=== PATIENT | female | born 1980 | race Caucasian/White ===

== ENCOUNTER → 2019-03-17 07:34 | Outpatient (CLI) | payer OTHER, SELFPAY ==
--- NOTE | ~2019-03-17 | MM_ITS ---
EXAMINATION: MM screening william BI w danelle HISTORY: Screening mammogram TECHNIQUE: Craniocaudal and mediolateral oblique 3-D tomosynthesis images were obtained and synthetic 2-D images were generated. CAD analysis was submitted and interpreted. COMPARISON: No prior mammogram is available for comparison at this institution. BREAST PARENCHYMAL COMPOSITION: There are scattered areas of fibroglandular density. FINDINGS: There is no evidence of suspicious mass, calcification, or architectural distortion to sugg est malignancy in either breast. There has been no suspicious interval change. IMPRESSION: 1. No mammographic evidence of malignancy. 2. Recommend routine screening mammography in one year. BI-RADS Category 1: Negative Reviewed, dictated and finalized at location B. STRIAL ORGANIZATIONAL PSYCHOLOGIST
== END ==
PROVIDERS: PCP Nurse Practitioner; Visit Provider Nurse Practitioner
DX: Z12.31 Encounter for screening mammogram for malignant neoplasm of breast (principal)
CPT/HCPCS: 77063; 77067

== ENCOUNTER → 2019-04-14 16:00 | Outpatient (CLI) | payer OTHER, SELFPAY ==
--- NOTE | ~2019-04-14 | XR_ITS ---
EXAMINATION: XR knee RT min 4V DATE: 04/14/2019 16:15 INDICATION: Right knee pain. TECHNIQUE: 4 views of right knee were obtained. COMPARISON: None. FINDINGS: Bone alignment is normal. No fracture. There is mild osteoarthritis of lateral and patellof emoral compartments characterized by tiny marginal osteophytes. No knee joint effusion. IMPRESSION: 1. Mild right knee osteoarthritis. Reviewed, dictated and finalized at location A. ATRONICS TECHNOLOGIST
== END ==
PROVIDERS: PCP Family Medicine; Visit Provider Family Medicine
DX: M17.11 Unilateral primary osteoarthritis, right knee (principal)
CPT/HCPCS: 73564

== ENCOUNTER 2019-11-16 11:11 | Outpatient (CLI) | payer OTHER, SELFPAY ==
--- NOTE | 2019-12-10 08:53 | WPDHOMESLEEP ---
Sleep Study - Home Date of Study: 11/16/19 Ordering Provider: Noel Medina MD Interpreting Physician: Nallely Burden MD Home Sleep Study Type: Apnea Link Air Height: 1.7 m Weight: 81.647 kg Body Mass Index: 28.1 [place]: 12 Reason for Sleep Study Non refreshing sleep, constantly tired Sleep History Pippa Sue is a 39 year-old female who is constantly tired. She rarely feels refreshed on waking, even after a full night of sleep. She constantly feels as if she could take a nap, although she does not have an opportunity to do so. She yawns constantly. This has been going on for several years. She wakes up during the night. She rarely snores loudly enough that others complain about it but she does frequently snore. She frequently awakens at night with heartburn and belching or coughing. she occasionally has trouble sick with a cold. She frequently wakes up gasping for breath at night frequently has breathing problems at night observed by others. She frequently sweats excessively at night. She occasionally notices her heart pounding irregularly at night. She frequently falls asleep during the day, never involuntarily or while driving. She does not have loss of muscle tone was strong emotion. 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 [facility] Past Medical History Medical History Abnormal fasting glucose Mixed hyperlipidemia Right knee pain Family History Family History Grandparent Family history of cardiovascular disease Mother Family history of coronary artery disease Social History Social History Smoking status: Never smoker Alcohol intake: current Medications Home Medications Medication Instructions Recorded Confirmed Type fluticasone propionate 50 1 spray NASAL BID 01/07/19 08/24/19 History mcg/actuation nasal spray,suspension levothyroxine 112 mcg tablet 112 mcg PO DAILY 01/07/19 08/24/19 History phentermine 37.5 mg capsule 37.5 mg PO DAILY #30 cap 02/19/19 08/24/19 Rx alprazolam 0.25 mg tablet 0.25 mg PO BID PRN #60 tablet 08/24/19 08/24/19 Rx venlafaxine 150 mg 150 mg PO DAILY #30 cap 09/28/19 Rx capsule,extended release 24 hr Sleep Procedure This test was performed using 4 channel monitoring including respiratory effort channel snoring channel heart rate channel and oxygen saturation channel. This study was scored using [facility] guidelines. The evaluation time was 8 hours 54 minutes which is adequate for a home sleep test. Sleep Architecture Not applicable for home sleep test. Respiratory Analysis The apnea-hypopnea index is 14. She had 24 apneas, 79% of these or 19 apneas were central, 17% of the apneas or 4 were obstructive and 1 apnea 4% was mixed. She had 102 hypopneas. Oximetry Data Oxygen desaturation index is 14. Lowest desaturation is 85%. Patient spent 1 minute below 88%. Snoring Profile Snoring was noted, light an intermittent 153 episodes. Cardiac Profile heart rate 50-106 Assessment and Plan Assessment and Plan (1) Central sleep apnea: Onset Date: ~11/2019 Code(s): G47.31 - Primary central sleep apnea Status: Acute Assessment and Plan: This home sleep test on November 16, 2019 using the ApneaLink system shows at least a mild central sleep apnea with an apnea-hypopnea index of 14, desaturation 85% and snoring. Home sleep tests in general underestimate degree of sleep disordered breathing so her AHI is likely higher as the HST counts the entire recording time as sleep. In addition her events were primarily central apneas. This is unusual, as she is young an does not have the usual comorbidities including congestive heart failure or history of strokes. These are often seen with central apneas however
[2019-12-11 08:42] VITALS: BMI 28.1
== END 2019-11-16 11:12 | disposition home or self-care (01) ==
LOC: ANHCSM 12-18 11:12
PROVIDERS: Visit Provider Family Medicine
DX: G47.10 Hypersomnia, unspecified (principal); G47.31 Primary central sleep apnea
CPT/HCPCS: 95806

== ENCOUNTER 2020-01-02 06:34 | Outpatient (CLI) | payer OTHER, SELFPAY ==
[2020-01-02 19:09] LABS: SARS-CoV-2 RNA PCR Negative
== END 2020-01-02 06:35 | disposition home or self-care (01) ==
LOC: ANHCOVIDDT 06:34
PROVIDERS: PCP Family Medicine; Visit Provider Internal Medicine Critical Care Medicine
DX: R68.89 Other general symptoms and signs (principal); Z20.828 Contact with and (suspected) exposure to other viral communicable diseases
CPT/HCPCS: 87635; C9803; U0003

== ENCOUNTER 2020-01-05 07:46 | Outpatient (CLI) | payer OTHER, SELFPAY ==
--- NOTE | 2020-02-19 07:24 | WPDSLEEPSTUD ---
Sleep Study Date of Study: 01/05/20 Ordering Provider: [facility] Past Medical History Medical History (Updated 12/21/19 @ 16:15 by Noel Medina MD) Abnormal fasting glucose BMI 30.0-30.9,adult Mixed hyperlipidemia Right knee pain Family History Family History Grandparent Family history of cardiovascular disease Mother Family history of coronary artery disease Social History Social History (Updated 12/21/19 @ 15:31 by Erika Cool MA) Smoking packs per day: 0.5 Smoking cigarettes per day: 10.0 Years smoked: 26 Smoking pack-years: 13.00 Smoking status: Current every day smoker Tobacco type: cigarettes Alcohol intake: current Substance use: never Medications Home Medications Medication Instructions Recorded Confirmed Type fluticasone propionate 50 1 spray NASAL BID 01/07/19 12/21/19 History mcg/actuation nasal spray,suspension levothyroxine 112 mcg tablet 112 mcg PO DAILY 01/07/19 12/21/19 History phentermine 37.5 mg capsule 37.5 mg PO DAILY #30 cap 02/19/19 12/21/19 Rx alprazolam 0.25 mg tablet 0.25 mg PO BID PRN #60 tablet 08/24/19 12/21/19 Rx venlafaxine 150 mg 150 mg PO DAILY #30 cap 09/28/19 12/21/19 Rx capsule,extended release 24 hr
--- NOTE | 2020-02-19 07:46 | WPDSLEEPSTUD ---
Sleep Study Date of Study: 01/05/20 Ordering Provider: Dr.Rodney Medina Interpreting Physician: Dr. Thompson Camilo Sleep Study Type: CPAP Titration Height: 1.7 m Weight: 81.647 kg Body Mass Index: 28.1 Neck Circumference: 40.64 cm [place]: 12 Reason for Sleep Study prior home study showing evidence of sleep disordered breathing. Sleep History Non refreshing sleep, constant fatigue and tiredness during daytime, occasional snoring and daytime sleepiness PMFSH Past Medical History Medical History (Updated 12/21/19 @ 16:15 by Noel Medina MD) Abnormal fasting glucose BMI 30.0-30.9,adult Mixed hyperlipidemia Right knee pain Family History Family History Grandparent Family history of cardiovascular disease Mother Family history of coronary artery disease Social History Social History (Updated 12/21/19 @ 15:31 by Erika Cool MA) Smoking packs per day: 0.5 Smoking cigarettes per day: 10.0 Years smoked: 26 Smoking pack-years: 13.00 Smoking status: Current every day smoker Tobacco type: cigarettes Alcohol intake: current Substance use: never Medications Home Medications Medication Instructions Recorded Confirmed Type fluticasone propionate 50 1 spray NASAL BID 01/07/19 12/21/19 History mcg/actuation nasal spray,suspension levothyroxine 112 mcg tablet 112 mcg PO DAILY 01/07/19 12/21/19 History phentermine 37.5 mg capsule 37.5 mg PO DAILY #30 cap 02/19/19 12/21/19 Rx alprazolam 0.25 mg tablet 0.25 mg PO BID PRN #60 tablet 08/24/19 12/21/19 Rx venlafaxine 150 mg 150 mg PO DAILY #30 cap 09/28/19 12/21/19 Rx capsule,extended release 24 hr Sleep Procedure CPAP titration, mask used was Driscoll FX nasal pillows, small size. Sleep Architecture Total recording time 516 minutes, sleep time 359 minutes, sleep efficiency 69.6%, sleep latency 25 minutes, REM latency 338 minutes. Awake after sleep onset 132 minutes, stage N1 23.9%, N2 60.5%, stage R 15.6%, N3 0%. Supine sleep 37.5%, supine REM sleep 9.2% Respiratory Analysis during CPAP titration patient had 17 apneas - 1 obstructive and 16 central apneas -apnea index 2.8. Four hypopneas -index 0.7, apnea-hypopnea index 3.5 . Supine index 4.4, nonsupine index 2.9. Arousals Total arousals 235 with index 27.3. Two hundred fifteen were spontaneous arousals. Periodic Limb Movements Thirty-one leg movements with index 5.2, 8 movements associated with arousals. No PLMS. Oximetry Data Mean oxygen saturation 94%, minimum saturation 91%. No major desaturations noted. Snoring Profile Mild intermittent snoring. Cardiac Profile Normal sinus rhythm, mean heart rate 62 beats per minute, range 51 to 80 beats per minute. EEG Profile Unremarkable EEG. Assessment and Plan Additional Plan CPAP titration data - patient was started on CPAP of 5 cm and gradually increased to CPAP of 8.2 cm which was the highest pressure reached. At 8.2 cm patient had 2 hours and 56 minutes of trial, 56 minutes of REM sleep and 1 hour and 38 minutes of non-REM sleep occurred. Six central apneas and 2 hypopneas were seen with apnea-hypopnea index of 3.1. The REM sleep was in supine position. Oxygen saturation averaged 94%. This CPAP therapy at CPAP of 8 or 8.2 cm adequately controls obstructive events and allows supine REM to occur. Central events even though not excessive still persist. The reason for occurrence of central apneas is not clear from the data available. Consider trial of CPAP to see if her daytime symptomatology can improve. Use of medications that could cause sleepiness need to be monitored.
[2020-02-19 08:14] VITALS: BMI 28.1
== END 2020-01-05 07:47 | disposition home or self-care (01) ==
LOC: ANHCSM 07:47
PROVIDERS: PCP Family Medicine; Visit Provider Family Medicine
DX: G47.33 Obstructive sleep apnea (adult) (pediatric) (principal)
CPT/HCPCS: 95811

== ENCOUNTER → 2020-09-28 13:21 | Outpatient (CLI) | payer OTHER, SELFPAY ==
--- NOTE | ~2020-09-28 | MM_ITS ---
EXAMINATION: MM screening william BI w danelle HISTORY: Screening mammogram TECHNIQUE: Craniocaudal and mediolateral oblique 3-D tomosynthesis images were obtained and synthetic 2-D images were generated. CAD analysis was submitted and interpreted. COMPARISON: 03/17/2019 BREAST PARENCHYMAL COMPOSITION: The breasts are heterogeneously dense, which may obscure small masses . FINDINGS: There is no evidence of suspicious mass, calcification, or architectural distortion to sugg est malignancy in either breast. There has been no suspicious interval change. IMPRESSION: 1. No mammographic evidence of malignancy. 2. Recommend routine screening mammography in one year. BI-RADS Category 1: Negative Reviewed, dictated and finalized at location A.
== END ==
PROVIDERS: Visit Provider Nurse Practitioner
DX: Z12.31 Encounter for screening mammogram for malignant neoplasm of breast (principal)
CPT/HCPCS: 77063; 77067

== ENCOUNTER → 2021-04-10 11:58 | Outpatient (CLI) | payer OTHER, SELFPAY ==
--- NOTE | ~2021-04-10 | XR_ITS ---
XR hand LT min 3V DATE: 04/10/2021 12:32 INDICATION: Left fingers pain TECHNIQUE: 3 views COMPARISON: None FINDINGS: No fracture or dislocation, periosteal reaction or bone destruction. No erosive change or c hondrocalcinosis. Joint spaces are preserved. IMPRESSION: Negative Reviewed, dictated and finalized at location A. GRAPH INSPECTOR IMPRESSION: Negative
--- NOTE | ~2021-04-10 | XR_ITS ---
XR hip BI 2V w AP pelvis DATE: 04/10/2021 12:32 INDICATION: Right hip pain TECHNIQUE: AP pelvis. AP and lateral views of each hip COMPARISON: March 29, 2017 left hip FINDINGS: The pubic symphysis and sacroiliac joints are intact. There is osteitis condensans ilii on the right. No pelvic fracture or bone destruction. The hip joint spaces are symmetric and well preserved. No fra cture, dislocation, avascular necrosis or bone destruction of either hip is detected. IMPRESSION: Right osteitis condensans ilii Reviewed, dictated and finalized at location A. ION CONSULTANT
--- NOTE | ~2021-04-10 | XR_ITS ---
XR lumbar spine min 4V DATE: 04/10/2021 12:32 INDICATION: Right hip pain TECHNIQUE: AP, lateral, bilateral oblique and coned lateral lumbosacral views COMPARISON: None FINDINGS: Mild to moderate multilevel degenerative disc disease. No fracture or bone destruction of t he lumbar spine. No spondylolysis. No spondylolisthesis. The lumbar pedicles are intact. The sacroili ac joints are intact. There is right osteitis condensans ilii IMPRESSION: Multilevel mild to moderate degenerative disc disease of the lumbar spine Right osteitis condensans ilii Reviewed, dictated and finalized at location A. TY SECURITY OFFICER
== END ==
PROVIDERS: PCP Family Medicine; Visit Provider Family Medicine
DX: M79.645 Pain in left finger(s) (principal); M25.551 Pain in right hip; M51.36 Other intervertebral disc degeneration, lumbar region; M85.35 Osteitis condensans, thigh
CPT/HCPCS: 72110; 73130; 73521

== ENCOUNTER 2021-04-20 08:41 | Outpatient (CLI) | payer OTHER, SELFPAY ==
--- NOTE | ~2021-04-20 | MM_ITS ---
. EXAMINATION: MM diagnostic william BI w danelle HISTORY: Breast pain TECHNIQUE: Additional 3-D tomosynthesis images of the breasts were performed and synthetic 2-D images were generated. CAD analysis was submitted and interpreted. COMPARISON: Comparison to multiple prior studies sequentially, with oldest reviewed study dated 05/2019. BREAST PARENCHYMAL COMPOSITION: The breasts are heterogenously dense, which may obscure small masses. FINDINGS: There are no suspicious masses, calcifications or architectural distortion in either breast to suggest malignancy. IMPRESSION: 1. Routine yearly screening mammogram and regular clinical breast examination are recommended. 2. Recommend routine screening mammography in one year. Reviewed, dictated and finalized at location A. INE OPERATOR PICKER IMPRESSION: 1. Routine yearly screening mammogram and regular clinical breast examination a re recommended. 2. Recommend routine screening mammography in one year.
== END 2021-04-20 08:42 ==
LOC: MICIMG 08:42
PROVIDERS: Visit Provider Nurse Practitioner
DX: N64.4 Mastodynia (principal)
CPT/HCPCS: 77062; 77066; G0279

== ENCOUNTER 2021-12-06 15:30 | Outpatient (RCR) | payer OTHER, SELFPAY ==
--- NOTE | 2021-10-30 08:50 | PTOPEVAL1 ---
Assessment and note entered by Kanika Nelson, PT, DPT Evaluation Information Assessment Status Evaluation Diagnosis pradip hip pain Onset 1 year Subjective Information Pt states for about the last year she has been getting pradip, lateral hip pain. By the end of the day she reports anterior thighs in the evening. She reports stiffness when standing after prolonged sitting. She does not report limitations in how long for can sit or walk. Reported Pain Level Pain Score 3: Self Report Assessment PT Clinical Summary Pippa presents to therapy today for her initial evaluation with a diagnosis of R hip impingement. Today she reports continuous pradip hip pain that is worse when initially weight bearing, she reports her pain as a deep ache. Today she demonstrates excellent ROM of her hips throughout. She has fair to good strength in her hips promoting instability. She demonstrates no deviations during stairs or ambulation on level surface. Skilled physical therapy services are indicated to address strength deficits, to manage pain, and to return to baseline function. Plan of Care Interventions Hot Pack/Cold Pack,Manual Therapy,Neuro Re- education,Patient/Caregiver Educati,Therapeutic Activities,Therapeutic Exercise,Ultrasound PT Services Indicated Yes Treatment Frequency and 1x/wks or 6 wks Duration These treatments will address the objective and functional deficits as defined above. The patient will be advanced safely and appropriately in order for the patient to progress towards his/her prior level of function. Additional exercises will be introduced and as well as a comprehensive home exercise program upon discharge, if needed, ?to ensure carryover of functional gains achieved in the clinic. This treatment plan has been reviewed and agreement upon by the patient.
--- NOTE | 2021-11-15 15:31 | PCPTNOTE ---
Pt was called and her appointment was cancelled this date d/t insurance troubles. Clerical staff is working to resolve this issue.
--- NOTE | 2021-11-21 16:29 | PCPTNOTE ---
Patient called to cancel due to family emergency.
--- NOTE | 2021-12-06 15:58 | PTOPPROG ---
Assessment and note entered by Kanika Nelson, PT, DPT Evaluation Information Assessment Status Progress Diagnosis pradip hip pain Onset 1 year Subjective Information Pt states she went to her referring provider yesterday and she states they want to screen her for auto-immune diseases. She states she is doing her exercises 1-2 times a week. She states her hip pain is about the same as when she started therapy, she reports 0% improvement. Pt states initially standing is what causes her the most pain. Assessment PT Clinical Summary Pippa presents to therapy today for her progress report following 2 visits of physical therapy and intermittent participation in her HEP. Today she reports no functional improvements. Today she demonstrates passive pradip hip ROM that is WNL and does not increase pain. She demonstrates improvements in her hip strength globally but still decreased from anticipated. During resistance testing, pt reports pain with increased resistance, but not in the location she normally feels pain, that being the anterior thighs. Pt would like to see the results of her auto- immune panel. She states pending these she might come back to therapy. Continuation of skilled therapy services are indicated to address the deficits noted above, to manage pain, and to return to baseline function. Plan of Care Interventions Hot Pack/Cold Pack,Manual Therapy,Neuro Re- education,Patient/Caregiver Educati,Therapeutic Activities,Therapeutic Exercise,Ultrasound PT Services Indicated Yes Treatment Frequency and on hold pending follow up with referring provider Duration These treatments will address the objective and functional deficits as defined above. The patient will be advanced safely and appropriately in order for the patient to progress towards his/her prior level of function. Additional exercises will be introduced and as well as a comprehensive home exercise program upon discharge, if needed, ?to ensure carryover of functional gains achieved in the clinic. This treatment plan has been reviewed and agreement upon by the patient.
--- NOTE | 2022-01-17 08:42 | PTOPDC ---
Assessment and note entered by Kanika Nelson, PT, DPT Evaluation Information Assessment Status Discharge - Pt Not Present Diagnosis pradip hip pain Onset 1 year Subjective Information Called pt to follow up as she was referring back to her referring provider. Pt states she does not need or want to continue therapy. She states at this time she is going to try [facility]. Assessment PT Clinical Summary Pippa has completed 3 visits of therapy from to 12/06/21. She would like to be discharged at this time. If she is to return to therapy at a later date, she will need a new order.
== END 2022-01-17 09:15 | disposition home or self-care (01) ==
LOC: ANHGOSHPT 15:30
PROVIDERS: PCP Family Medicine; Visit Provider Nurse Practitioner
DX: M25.551 Pain in right hip (principal)
CPT/HCPCS: 97110; 97112; 97140; 97161; 97530

== ENCOUNTER 2023-11-21 12:28 | Outpatient (CLI) | payer OTHER, SELFPAY ==
--- NOTE | 2023-11-21 12:53 | ECHO_ITS ---
Patient Info Name: Pippa Rodriguez Sue Age: 43 years : 1980 Gender: Female Ht: 67 in Wt: 190 lbs BSA: 2.04 m2 HR: 68 bpm BP: 128 / 91 mmHg Technical Quality: Good Exam Date: 11/21/2023 1:02 PM Exam Location: Echo Lab Patient Status: Outpatient Admit Date: 11/21/2023 Staff Ordering Physician: Noel Medina MD Piping Designer: Rosalba Downs RDCS Attending Provider: Noel Medina MD Referring Physician: Adam BARFIELD; Exam Type: CA echo doppler color flow Study Info Indications R06.02 - Shortness of breath Complete two-dimensional, color flow and Doppler transthoracic echocardiogram is performed. Strain analysis performed. Summary 1. Complete two-dimensional, color flow and Doppler transthoracic echocardiogram is performed. 2. Left ventricular chamber dimension is normal. 3. Left ventricular systolic function is normal, estimated at 60-65%. 4. The left ventricular diastolic function is abnormal. 5. E/e' 10 is mildly elevated. 6. Global longitudinal strain is normal at -17.5%. 7. Mild pulmonary hypertension, estimated pulmonary arterial systolic pressure is 48 mmHg. Left Ventricle E/e' 10 is mildly elevated. Global longitudinal strain is normal at -17.5%. Left ventricular chamber dimension is normal. Left ventricular systolic function is normal, estimated at 60-65%. The left ventricular diastolic function is abnormal. Right Ventricle Right ventricular systolic function is normal and with normal TAPSE 1.8 cm. Right ventricular chamber dimension is normal. Left Atria Left atrial chamber dimension is normal. Right Atria Right atrial chamber dimension is normal. Aortic Valve The aortic valve is trileaflet. There is no aortic valve stenosis. There is no aortic valve regurgitation. Pulmonic Valve There is no pulmonic regurgitation. Mitral Valve There is no mitral valve stenosis. There is no mitral valve regurgitation. Tricuspid Valve There is no tricuspid valve regurgitation. Mild pulmonary hypertension, estimated pulmonary arterial systolic pressure is 48 mmHg. Pericardium/Pleural There is no pericardial effusion. Inferior Vena Cava Normal inferior vena cava with >50% collapse upon inspiration consistent with normal right atrial pressure, 5 mmHg. Aorta The aortic root size at the sinus of Valsalva is normal. Left Ventricular Outflow Tract Name Value Normal LVOT 2D LVOT Diameter 2.0 cm LVOT Doppler LVOT Peak Gradient 4 mmHg LVOT Mean Gradient 3 mmHg LVOT VTI 23 cm LVOT VTI/AV VTI Ratio 0.7 LVOT Stroke Volume 70 ml LVOT CO 4.3 l/min LVOT CI 2.1 l/min/m2 Pulmonic Valve Name Value Normal RVOT Doppler RVOT Peak Gradient 3 mmHg PV Doppler
--- NOTE | 2023-11-22 09:48 | P.PCNPFT_ITS ---
PFT Procedure Performed PFT Procedure Performed Spirometry with Pre/Post Bronchodilator Plethysmography (Lung Vol) Diffusing Cap (DLCO) Flow Vol Loop PFT Interpretation Lung volumes were measured with the body plethysmography method. The diminished ERV could be related to obesity. The remaining lung volumes are unremarkable. Spirometry showed normal expiratory flow rates and a normal FEV1 to FVC ratio 79%. Following administration of a bronchodilator there was no significant increase in expiratory flow rates. Lung diffusion capacity is within the normal range at 79% predicted. The flow-volume loop is unremarkable. Impression: Spirometry, lung volumes, and lung diffusion capacity all within th e normal range.
== END 2023-11-21 12:29 | disposition home or self-care (01) ==
LOC: ANHCARD 12:32
PROVIDERS: PCP Family Medicine; Visit Provider Family Medicine
DX: R06.02 Shortness of breath (principal)
CPT/HCPCS: 93306; 94060; 94726; 94729

== ENCOUNTER 2024-03-03 16:12 | Emergency (ER) | payer OTHER, SELFPAY ==
[2024-03-03 16:18] VITALS: BP 129/86; PULSE 90; RESP 20; TEMP 36.9; O2SAT 100
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
--- OUTSIDE RECORDS SUMMARY | 2024-03-05 20:01 | XMS_ITS ---
Author Organization [facility] Address [address] [place] [address] Phone Care Team Providers Care Research & Analytics Manager Name Role Phone Unavailable Unavailable Unavailable Plan of Treatment Findings Encounter Date Continue current medication COVID SICK V ISIT- NEW PATIENT with SUZANNE RAZA ELECT[employer]ICIAN SUBSTATION-C 09/22/2020 Last Documented On 10:43AM ; [facility] The options include close observation CO VID SICK VISIT- NEW PATIENT with SUZANNE RAZA ELECTRICIAN SUBSTATION-C 09/22/2020 Last Documented On 10:43AM ; [facility] Assessments Includes: Assessments for all patient encounters Findings Encounter Date Contact with and (Suspected) exposure to COVID-19 [Contact with and (suspected) exposure to COVID-19] COVID SICK VISIT- NEW PATIENT with SUZANNE RAZA ELECTRICIAN SUBSTATION-C 09/22/2020 Last Documented On 10:43AM ; [facility] Medical Equipment - Implanted Devices Includes: Current and historical Devices No Medical Equipment Recorded Medications Administered Includes: Administered Medications in patient's chart No Administered Medications Recorded Results Includes: Results from 03/05/2023 through 03/05/2024 No Results Recorded For Specified Dates History of Present Illness History of Present Illness not supported for this document type No History of Present Illness Recorded Social History Description Last Updated No travel 09/22/2020 Last Documented On 10:43AM ; [facility] Smoking Status Unknown Medical History Includes: Medical History in patient's chart Description Last Updated No exposure to a contagious disease 09/11 Last Documented On 10:43AM ; [facility] Family History Includes: Family History in patient's chart No Family History Recorded Review of Systems Review of Systems not supported for this document type No Review of Systems Recorded Mental Status No Mental Status Recorded Functional Status No Functional Status Recorded Physical Exam Physical Exam not supported for this document type No Physical Exam Recorded Insurance Includes: Active Insurance Policies No Insurance Coverage Recorded Guarantor Relationship Effective Dates Guarantor Ph one CHEEK, MALA Rodriguez [facility] [id number] Clinical Notes Includes: Signed Clinical Notes starting from 03/02/2022 No Clinical Notes Recorded
--- OUTSIDE RECORDS SUMMARY | 2024-03-05 20:01 | XMS_ITS | Clinical Summary ---
Author Organization [facility] Address [address] [place] [address] Care Team Providers Care Shell Worker Name Role Phone Giuseppe Loera MD Primary Care Provider + Allergies No known active allergies Medications venlafaxine XR (EFFEXOR-XR) 37.5 mg 24 hr capsule Take 2 capsules (75 mg total) by mouth daily 7 Active buPROPion XL (WELLBUTRIN XL) 300 mg 24 hr tablet Take 1 tablet (300 mg total) by mouth daily Active varenicline tartrate (CHANTIX) 1 mg tabletIndicatio ns:Smoking Cessation Take 0.5 tablets (0.5 mg total) by mouth 2 (two) times a day for 7 days, THEN 1 tablet (1 mg total) 2 (two) times a day. Take with full glass of water.. 60 tablet 1 4 03/06/19 25 Active Additional Information Patient not taking.Reported on 01/16/2024 Active Problems Problem Noted Date Diagnosed Date Central sleep apnea 12/03/2023 Shortness of breath 12/03/2023 Pulmonary hypertension, unspecified 12/03/2023 Other ill-defined heart diseases 12/03/2023 Tobacco abuse 12/03/2023 Obesity (BMI 30.0-34.9) 12/03/2023 Family history of premature CAD 12/03/2023 Encounters Date Type Department Care Team Description 01/16/2024 11:15 AM INSPECTOR ADVANCED COMPOSITE Office Visit [facility] Cardiology at [address] [place] [address] Nolberto Akers MD Pulmonary hypertension, unspecified (HCC) (Primary Dx); Shortness of breath; Central sleep apnea 12/30/2023 10:18 AM INSPECTOR [employer]VANCED COMPOSITE - 12/30/2023 11:48 AM INSPECTOR ADVANCED COMPOSITE Surgery [facility] Cardiac Catheterization Lab [address] [place] [id number] Ramin Maxwell MD RIGHT LEFT HEART CATHETERIZATION WITH CORONARY ANGIOGRAPHY GRAFT AND WITH OR WITHOUT LEFT VENTRICULOGRAPHY [id number] 12/30/2023 7:46 AM INSPECTOR [employer]VANCED COMPOSITE - 12/30/2023 2:21 PM INSPECTOR ADVANCED COMPOSITE Hospital Encounter [facility] Cardiac Catheterization Lab [address] [place] [id number] Ramin Maxwell MD Pulmonary hypertension, unspecified (HCC); Shortness of breath Discharge Disposition: Discharge to home or self care from Last 3 Months Immunizations Name Administration Dates Next Due Tdap 10/22/2022 Surgical History Surgery Date Site/Laterality Comments BUNIONECTOMY Bilateral Medical History Medical History Date Comments Hypothyroidism Pulmonary hypertension (HCC) SOB (shortness of breath) Hypertension Anxiety Central sleep apnea Family History Medical History Relation Name Comments Hyperlipidemia Father Hypertension Father Hyperlipidemia Mother Relation Name Status Comments Father Mother Alive Social History Tobacco Use Types Packs/Day Years Used Date Smoking Tobacco: Every Day Cigarettes 0.5 25 Smokeless Tobacco: Never Tobacco Cessation:Ready to Q uit: Not Asked; Counseling Given: Not Answered Alcohol Use Standard Drinks/Week Comments Yes 0 (1 standard drink = 0.6 oz pur e alcohol) Personal Safety Answer Date Recorded Have you ever been in or are you currently in a harmful physical or emotional relationship or is someone making you feel afraid or unsafe? Denies 12/30/2023 Comments No Sex and Gender Information Value Date Recorded Sex Assigned at Not on file Legal Sex Female 7:58 AM INSPECTOR [employer]POSITE Gender Identity Not on file Sexual Orientation Not on file Obstetrics History Last Filed Vital Signs Vital Sign Reading Time Taken Comments Blood Pressure 124/86 01/16/2024 11:15 AM INSPECTOR ADVANCED COMPOSITE Pulse 87 01/16/2024 11:15 AM INSPECTOR ADVANCED COMPOSITE Temperature 37 ??C (98.6 ??F) 12/30/2023 8:07 AM INSPECTOR ADVANCED COMPOSITE Respiratory Rate 18 12/30/2023 8:07 AM INSPECTOR ADVANCED COMPOSITE Oxygen Saturation 96% 01/16/2024 11:15 AM INSPECTOR ADVANCED COMPOSITE Inhaled Oxygen Concentration - - Weight 93 kg (205 lb) 01/16/2024 11:15 AM INSPECTOR ADVANCED COMPOSITE Height 168.9 cm (5' 6.5 ) 01/16/2024 11:15 AM CS T Body Mass Index 32.59 01/16/2024 11:15 AM INSPECTOR ADVANCED COMPOSITE Plan of Treatment Health Maintenance Due Date Last Done Comments Breast Cancer Screening-Mammogram 1978 Cervical Cancer Screening 1978 Colon Cancer Screening-Colonoscopy 1978 Depression Screening 1978 Hepatitis C Screening 1978 Pneumococcal vaccine <65 (1 of 2 - PCV) 1984 Hepatitis B Screening 1996 Regular Well Visit/Exam 18-64 1996 Influenza Vaccine (#1) 2023 DTaP/Tdap/Td Vaccine (2 - Td or Tdap) 10/22/2032 10/22/2022 HPV Vaccines Aged Out No longer eligi ble based on patient's age to complete this topic Medical Devices Implanted Type Area Dog Sitter Device Identifier Shelf Expiration Date Model / Serial / Lot 3.0 X 22 Mm Headed Cannulated Screw Implanted:Qty: 1 on 01/29/2019 by Winston Ramos DPM at [facility] Screw Left: [employer] [id number] / / [id number] [employer] Device 10ml 5fr Closure Mynx Control 2 Mode Balloon Catheter [id number] - [id number] Implanted:Qty: 1 on 12/30/2023 by Ramin Maxwell MD at [facility] [employer] 10/29/2025 [id number] / / [id number] Procedures Procedure Name Priority Date/Time Associated Diagnosis Comments VASCULAR ACCESS US GUIDANCE Routine 12/30/2023 11:17 AM INSPECTOR ADVANCED COMPOSITE Pulmonary hypertension, unspecified (HCC) Shortness of breath RIGHT LEFT HEART CATHETERIZATION CORONARY GRAFT WITH WITHOUT LEFT VENTRICULOGRAPHY ANGIOGRAM Routine 12/30/2023 11:17 AM INSPECTOR ADVANCED COMPOSITE Pulmonary hypertension, unspecified (HCC) Shortness of breath MODERATE SEDATION FIRST 15MIN 5+ YEAR [address]43 12/30/2023 10:25 AM INSPECTOR ADVANCED COMPOSITE Pulmonary hypertension, unspecified (HCC) Shortness of breath POCT HCG, URINE Routine 12/30/2023 8:03 AM INSPECTOR ADVANCED COMPOSITE COMPREHENSIVE METABOLIC PANEL Routine 12/26/2023 7:15 AM INSPECTOR ADVANCED COMPOSITE Pre-procedure lab exam CBC WITH AUTO DIFFERENTIAL Routine 12/26/2023 7:15 AM INSPECTOR ADVANCED COMPOSITE Pre-procedure lab exam from Last 3 Months Results * RIGHT LEFT HEART CATHETERIZATION CORONARY GRAFT WITH WITHOUT LEFT VENTRICULOGRAPHY ANGIOGRAM, VASCULAR ACCESS US GUIDANCE (12/30/2023 11:17 AM INSPECTOR ADVANCED COMPOSITE) Anatomical Region Laterality Modality X-Ray Angiograph y Addenda Addendum by Ramin Maxwell MD on 12/30/2023 12:16 PM INSPECTOR ADVANCED COMPOSITE RIGHT AND LEFT HEART CAHETERIZATION ??REPORT DATE OF PROCEDURE: 12/30/23 INDICATION FOR PROCEDURE: ??Dyspnea on exertion BRIEF CLINICAL HISTORY: Pippa Sue is a 43 y.o. female with tobacco abuse; family history of early CAD. Patient was referred by Dr. Akers for right and left heart catheterization in the setting of dyspnea on exertion. ??Based on the clinic notes, her echocardiogram previously reportedly showed normal LV function, RVSP 48 mmHg. Benefits and risks of the procedure were discussed with the patient in depth, and informed consent was taken prior to the procedure. ??Risks of the procedure include but are not limited to vascular complications like groin hematoma, retroperitoneal bleed, vessel perforation; periprocedural FL, cardiac arrhythmias, stroke, contrast induced nephropathy, and . ?? After discussing all the benefits, risks and alternatives, patient was willing to proceed with the procedure. PROCEDURES PERFORMED: Ultrasound-guided right common femoral arterial and venous access Right heart catheterization with hemodynamic assessment Left heart catheterization- ??selective left and right coronary angiogram, left ventriculogram, LV pressure management and hemodynamic assessment Deployment of Mynx vascular closure device Moderate sedation-CPT code 78013 MODERATE SEDATION: Midazolam 2 mg , Fentanyl 50 mcg, start time ?1049 stop time ?? 1117, total time ?? 28 minutes (CPT 65294) TRAINED OBSERVER: Leia Weaver ??RN was trained observer for moderate sedation. ACCESS SITE: ??Right common femoral artery and vein PROCEDURE: ??After obtaining informed consent, patient was brought to the veterinary laboratory diagnostician and prepped and draped in the usual sterile manner. ??Time-out and immediate reassessment of the patient was performed. ??After local anesthesia with lidocaine, right common femoral artery access was taken with micropuncture needle under ultrasound guidance followed by insertion of a 5 Surinamese sheath over a 0.035 inch wire. ??Right common femoral venous access was taken under ultrasound guidance followed by insertion of a 7 Surinamese sheath. Right heart catheterization was was performed using [place]-Debra catheter under fluoroscopic guidance. ??Pressures were measured in the right atrium, right ventricle, pulmonary artery, pulmonary capillary. ??Cardiac output was measured using thermodilution and Wade technique. ??The catheter was taken out and attention was shifted to the left heart catheterization. Selective left and right coronary angiography was performed using 5 F JL4 and 5F JR4 catheters respectively. ??Orthogonal views were taken. ??Five Surinamese JR4 catheter catheter was advanced into the left ventricular cavity and LV pressure measurement followed by left ventriculogram was performed using minimal dye. ??The catheter was flushed, and gradient across the aortic valve was measured using pullback technique. Estimated blood loss minimum. ??All specimens were removed. Patient tolerated procedure well without any immediate procedure related complications. FINDINGS: LEFT HEART CATHETERIZATION: LEFT MAIN CORONARY: ??Medium caliber, relatively short vessel, no significant focal stenosis. LEFT ANTERIOR DESCENDING ARTERY: ??Medium caliber vessel, tapers distally; no significant focal stenosis in the LAD or its diagonal branches LEFT CIRCUMFLEX ARTERY: ??LCX is a large caliber, dominant vessel. ??It gives rise to high OM1 branch; and LPDA without significant focal stenosis RIGHT CORONARY ARTERY: ??Small to medium caliber, nondominant vessel. ??No significant focal stenosis LEFT VENTRICULOGRAM: ??Normal LV systolic function, ejection fraction about 60%; LVEDP 10 mmHg. HEMODYNAMIC ASSESSMENT: ??Opening pressure 122/74 mmHg, closing pressure 132/74 mmHg, LVEDP 10 mmHg RHYTHM: ??Sinus rhythm RIGHT HEART CATHETERIZATION: Right atrium pressure ??10/14/8 mmHg Right ventricle 31/4/9 Pulmonary artery 19/17/13 Pulmonary capillary wedge pressure 14 PVR within normal limits. OXYGEN SATURATIONS: Right atrium 72.3% Right ventricle 74.8 Pulmonary artery 74.7 Arterial saturation 95.1 Hemoglobin 12.6 grams/deciliters Cardiac output (Wade method) 8.59 liters/minute; cardiac index 4.26 liters/minute per meter squared Cardiac output (thermodilution method) 6.6 liters/minute; cardiac index 3.28 liters/minute per meter squared CONCLUSIONS: No angiographically significant obstructive CAD. ??Left dominant coronary system. LVEDP 10 mmHg. PA pressure within normal limits. PLAN/RECOMMENDATIONS: ??Aggressive cardiovascular risk modification including complete smoking cessation. ??Patient has recently resumed smoking, and is willing to try Chantix to facilitate smoking cessation. ?? Follow up with Dr. Akers. Voice recognition software was used to complete this document, therefore, bulwark carpenter variances may occur. Ramin Maxwell MD, [facility] 12/30/23 Ramin Maxwell MD CV CARDIAC CATH PROCEDURES Edite d Result - Final * POCT hCG, urine (12/30/2023 8:03 AM INSPECTOR ADVANCED COMPOSITE) Pathologist [facility] [place] HCG, ur, POC Negative Negative Lot Number [id number] QC Backgroud Clear Acceptable QC Control Line Acceptable Urine 12/30/2023 8:03 AM INSPECTOR ADVANCED COMPOSITE Ramin Maxwell MD POINT OF CARE TEST ORDERABLES Fi nal Result * CBC with auto differential (12/26/2023 7:15 AM INSPECTOR ADVANCED COMPOSITE) Pathologist [facility] [place] WBC 4.9 3.4 - 10.8 x10E3/uL [facility] - 01 RBC 4.36 3.77 - 5.28 x10E6/uL [facility] - 01 Hgb 13.5 11.1 - 15.9 g/dL [facility] - 01 Hct 41.4 34.0 - 46.6 % [facility] - 01 MCV 95 79 - 97 fL [facility] - 01 MCH 31.0 26.6 - 33.0 pg [facility] - 01 MCHC 32.6 31.5 - 35.7 g/dL [facility] - 01 Rdw 13.6 11.7 - 15.4 % [facility] - 01 Platelets 321 150 - 450 x10E3/uL [facility] - 01 Neutrophils pct 59 Not Estab. % [facility] - 01 Lymphs pct 30 Not Estab. % [facility] - 01 Monocytes pct 8 Not Estab. % [facility] - 01 Eosinophils pct 2 Not Estab. % [facility] - 01 Basophil pct 1 Not Estab. % [facility] - 01 Neutrophil abs 2.9 1.4 - 7.0 x10E3/uL [facility] - 01 Lymphs (Absolute) 1.5 0.7 - 3.1 x10E3/uL [facility] - 01 Monocyte abs 0.4 0.1 - 0.9 x10E3/uL [facility] - 01 Eosinophils, abs 0.1 0.0 - 0.4 x10E3/uL [facility] - 01 Basophils, abs 0.0 0.0 - 0.2 x10E3/uL [facility] - 01 Immature Granulocytes 0 Not Estab. % [facility] - 01 Immature Grans (Abs) 0.0 0.0 - 0.1 x10E3/uL [facility] - 01 Blood 12/26/2023 7:15 AM INSPECTOR ADVANCED COMPOSITE 12/26/2023 Narrative [facility] - 12/27/2023 7:13 AM INSPECTOR ADVANCED COMPOSITE Performed at: ?? - [facility] [address] ??[id number] Advertising Coordinator: Jon Ruiz PhD, Phone: ??[phone] us Nolberto Akers MD LAB BLOOD ORDERABLES Kayleigh l [facility] - * (ABNORMAL) Comprehensive metabolic panel (12/26/2023 7:15 AM INSPECTOR ADVANCED COMPOSITE) Pathologist [facility] [place] Glucose 88 70 - 99 mg/dL [facility] - 01 BUN 22 6 - 24 mg/dL [facility] - 01 Creatinine, Serum 0.62 0.57 - 1.00 mg/dL [facility] - 01 eGFR 112 >59 mL/min/1.7 3 [facility] - 01 BUN/creat ratio 35(H) 9 - 23 [facility] - 01 Sodium 140 134 - 144 mmol/L [facility] - 01 Potassium, sr 4.8 3.5 - 5.2 mmol/L [facility] - 01 Chloride 108(H) 96 - 106 mmol/L [facility] - 01 CO2 20 20 - 29 mmol/L [facility] - 01 Calcium 9.9 8.7 - 10.2 mg/dL [facility] - 01 Protein, sr 7.3 6.0 - 8.5 g/dL [facility] - 01 Albumin 4.5 3.9 - 4.9 g/dL [facility] - 01 Globulin, Total 2.8 1.5 - 4.5 g/dL [facility] - 01 Bilirubin, Total <0.2 0.0 - 1.2 mg/dL [facility] - 01 Alk phos 79 44 - 121 IU/L [facility] - 01 AST 16 0 - 40 IU/L [facility] - 01 ALT 18 0 - 32 IU/L [facility] - 01 Blood 12/26/2023 7:15 AM INSPECTOR ADVANCED COMPOSITE 12/26/2023 Narrative [facility] - 12/27/2023 7:13 AM INSPECTOR ADVANCED COMPOSITE Performed at: ??01 - [facility] [address] ??[id number] Advertising Coordinator: Jon Ruiz PhD, Phone: ??[phone] us Nolberto Akers MD LAB BLOOD ORDERABLES Kayleigh l Result Performing Organization Address City/State/[facility] Co de Phone Number [facility] - 01 from Last 3 Months Insurance Social Strategy 1 OPEN ACCESS AETNA SIG [id number] Advance Directives For more information, please contact: [phone] * Full Code (Latest Code Status on File) Date Activated Date Inactivated Comments 01/29/2019 10:16 AM 01/29/2019 6:39 PM * Full Code Date Activated Date Inactivated Comments 04/12/2017 9:24 AM 04/12/2017 12:47 PM Care Teams Shell Worker Relationship Specialty Start Date End Date Giuseppe Loera MD [address] [address] [place] [address] PCP - General 01/28/17
--- OUTSIDE RECORDS SUMMARY | 2024-03-05 20:01 | XMS_ITS | Patient Health Summary ---
Author Organization [facility] Address [address] [place] [address] Care Team Providers Care Vice Chair Name Role Phone Noel Medina MD Primary Care Provider [phone] Note from [facility],non-owned Affiliates and Associated Physician Practices is amultiple site organization consisting of ambulatory clinics and hospital sitesin [place], [place], [place] and [place]. This disclosure is being madepursuant to the Care Everywhere program and may not contain all information available regarding this patient. Last updated 17.[facility] [employer] Allergies No known active allergies Medications * Be aware that medications may not be up to date on this document. Alwaysverify current medications with the patient. * LEVOTHYROXINE SODIUM PO * Venlafaxine HCl (EFFEXOR PO) * PHENTERMINE HCL PO Social History Tobacco Use Types Packs/Day Years Used Date Smoking Tobacco: Every Day Smokeless Tobacco: Never Sex and Gender Information Value Date Recorded Sex Assigned at Not on file Gender Identity Not on file Sexual Orientation Not on file Last Filed Vital Signs Vital Sign Reading Time Taken Comments Blood Pressure 122/78 11/01/2017 11:21 AM CDT Pulse 65 11/01/2017 11:21 AM CDT Temperature 36.9 ??C (98.4 ??F) 11/01/2017 11:21 AM C DT Respiratory Rate 16 11/01/2017 11:21 AM CDT Oxygen Saturation 97% 11/01/2017 11:21 AM CDT Inhaled Oxygen Concentration - - Weight 74.8 kg (165 lb) 11/01/2017 11:21 AM CDT Height 170.2 cm (5' 7 ) 11/01/2017 11:21 AM CDT Body Mass Index 25.84 11/01/2017 11:21 AM CDT Procedures * CULTURE AEROBIC(Performed 11/01/2017) Performed for Localized bacterial skin infection Results * (ABNORMAL) CULTURE AEROBIC (11/01/2017 11:38 AM CDT) Aerobic Bacterial Culture Final report(A) [facility] ACCOUNT BILL Result 1 Staphylococcus aureus(A) [facility] ACCOUNT BILL Comment: Light growth Based on susceptibility to oxacillin this isolate would be susceptible to: *Penicillinase-stable penicillins, such as: ??Cloxacillin, Dicloxacillin, Nafcillin *Beta-lactam combination agents, such as: ??Amoxicillin-clavulanic acid, Ampicillin-sulbactam, ??Piperacillin-tazobactam *Oral cephems, such as: ??Cefaclor, Cefdinir, Cefpodoxime, Cefprozil, Cefuroxime, ??Cephalexin, Loracarbef *Parenteral cephems, such as: ??Cefazolin, Cefepime, Cefotaxime, Cefotetan, Ceftaroline, ??Ceftizoxime, Ceftriaxone, Cefuroxime *Carbapenems, such as: ??Doripenem, Ertapenem, Imipenem, Meropenem Result 2 Mixed skin tyson [facility] ACCOUNT BILL Comment:Light growth Antimicrobial Susceptibility [facility] ACCOUNT BILL Comment: ? S = Susceptible; I = Intermediate; R = Resistant ? P = Positive; N = Negative ?MICS are expressed in micrograms per mL ?? Antibiotic ? RSLT#1 ?RSLT#2 ?RSLT#3 ?RSLT#4 Ciprofloxacin ?S Clindamycin ?S Erythromycin ? S Gentamicin ? S Levofloxacin ? S Linezolid ?S Moxifloxacin ? S Oxacillin ?S Penicillin ? R Quinupristin/Dalfopristin ?S Rifampin ? S Tetracycline ? S Trimethoprim/Sulfa ? S Vancomycin ? S Microbiology EAR SWAB SPECIMEN / Unknown 11/01/2017 11:38 AM CDT 11/01/2017 Narrative Resulting Agency Comment [facility] [place] [address] [facility] [id number] Pam Dugan A/C TECHNICIAN-SOFTWARE TEST ENGINEER LAB - MICROBIOLOG Y ORDERABLES [facility] ACCOUNT BILL [address] [place] [address] Care Teams Vice Chair Relationship Specialty Start Date End Date Noel Medina MD PCP - General Family Medicine 07/27/16
--- OUTSIDE RECORDS SUMMARY | 2024-03-05 20:01 | XMS_ITS | Clinical Summary ---
Author Organization [facility] Address [address] [place] [address] Care Team Providers Care Track Subway Repair Supervisor Name Role Phone Noel Medina MD Primary Care Provider [phone] Source Comments [facility],non-owned Affiliates and Associated Physician Practices is amultiple site organization consisting of ambulatory clinics and hospital sitesin [place], [place], [place] and [place]. This disclosure is being madepursuant to the Care Everywhere program and may not contain all information available regarding this patient. Last updated 17.[facility] Allergies No known active allergies Medications * Be aware that medications may not be up to date on this document. Alwaysverify current medications with the patient. Medication Sig Dispensed Refills Start Date End Date Status LEVOTHYROXINE SODIUM PO A ctive Venlafaxine HCl (EFFEXOR PO) Active PHENTERMINE HCL PO Active Social History Tobacco Use Types Packs/Day Years [...] Mass Index 25.84 11/01/2017 11:21 AM CDT Plan of Treatment Health Maintenance Due Date Last Done Comments COLOGUARD (AGES 45-75) - COL ON CA SCREENING 1978 COLON MONITORING 1978 COLONOSCOPY - COLON CA SCREENING 1978 CT COLONOGRAPHY - COLON CA SCREENING 1978 Colorectal Cancer Screening 1978 FIT - COLON CA SCREENING 1978 FLEX SIG - COLON CA SCREENING 1978 LIPID TESTING 1978 MAMMOGRAM 1978 PAP SMEAR 1978 HIV SCREENING 1993 HEPATITIS C SCREENING 10/16/1996 DTAP/TDAP/TD VACCINES (1 - Tdap) 1997 HEPATITIS B VACCINE (1 of 3 - 19+ 3-dose series) 1997 PNEUMOCOCCAL VACCINE (1 of 2 - PCV) 1997 COVID-19 VACCINE (1 - 2023-2 5 season) 2023 INFLUENZA VACCINE (#1) 2023 DEPRESSION SCREENING 02/12/2024 ZOSTER VACCINE (1 of 2) 2028 HIB VACCINE Aged Out No longer eligi ble based on patient's age to complete this topic HPV VACCINE Aged Out No longer eligi ble based on patient's age to complete this topic MENINGOCOCCAL (Group B) VACCINE Aged Out No longer eligible based on patient's age to complete this topic MENINGOCOCCAL VACCINE Aged Out No oanh tres eligible based on patient's age to complete this topic Care Teams Track Subway Repair Supervisor Relationship Specialty Start Date End Date Noel Medina MD PCP - General Family Medicine 07/27/16
--- OUTSIDE RECORDS SUMMARY | 2024-03-05 20:01 | XMS_ITS | Referral Summary ---
Author Organization [facility] Address [address] [place] [address] Care Team Providers Care Sql Developer Name Role Phone Noel Medina MD Primary Care Provider [phone] [facility],non-owned Affiliates and Associated Physician Practices is amultiple site organization consisting of ambulatory clinics and hospital sitesin [place], [place], [place] and [place]. This disclosure is being madepursuant to the Care Everywhere program and may not contain all information available regarding this patient. Last updated 17.[facility] Allergies No known active allergies Medications * [...] 11/01/2017 11:21 AM CDT Plan of Treatment Not on file Care Teams Sql Developer Relationship Specialty Start Date End Date Noel Medina MD PCP - General Family Medicine 07/27/16
--- OUTSIDE RECORDS SUMMARY | 2024-03-05 20:01 | XMS_ITS | Clinical Summary ---
Author Organization [facility] Address [address] [place] [address] Phone Care Team Providers Care Nurses' Association Counselor Name Role Phone Unavailable Unavailable Unavailable Reason for Visit and Chief Complaint The Chief Complaint is: Pt. c/o fatigue, dry cough, headache, muscle aches X 4 days. Pt states her friend is Covid + X6 days ago.Pt. is not Covid vaxxed Plan of Treatment - The options include close observation - Last Documented On 09/22/2020 10:43AM ; [facility] - Continue current medication - Last Documented On 09/22/2020 10:43AM ; [facility] Rapid COVID testing performed was negative. Patient advised that they may return to school/work when fever free without fever reducing medication for 24 hours and symptoms have improved. Call clinic for worsening symptoms or any concerns - Last Documented On 09/22/2020 10:43AM ; [facility] Assessments Includes: Assessments from this encounter Findings - Contact with and (Suspected) exposure to COVID-19 [Contact with and (suspected) exposure to COVID-19] - Last Documented On 09/22/2020 10:43AM ; [facility] Medical Equipment - Implanted Devices Includes: Current Devices No Medical Equipment Recorded Medications Administered Includes: Administered Medications from this encounter No Administered Medications Recorded Vital Signs Includes: Vital Signs from this encounter Vital Name 09/22/2020 09:16A Pulse Rate-Sitting (bpm) 82 Temp-Oral (F) 97.9 Oxygen Saturation (%) 98 Last Documented: On 09/22/2020 9:17AM ; [facility] Results Includes: Results discussed during this encounter Rapid COVID Test [facility] Ordered by SUZANNE MICHELE on 0 09/22/2020 Collected: Reported: 09/22/2020 09:26 Last Documented On 9:27AM ; [facility] Reviewed on 09/22/2020; All test results are final unless otherwise noted. Rapid COVId Negative N (Normal) Last Documented On 9:26AM ; [facility] Int. QC Acceptable yes N (Normal) Last Documented On 9:26AM ; [facility] Lot # and Exp. Date [id number] N (Normal) Last Documented On 9:26AM ; [facility] History of Present Illness Includes: History of Present Illness from this encounter HPI MALA CHEEK is a 39 year old female. - Allergy list reviewed - Medication reconciliation performed - Feeling fine - Not feeling tired - Not feeling poorly (malaise) - No fever - No chills - No headache - No sinus pain - No swollen glands in the neck - No eye symptoms - No ear symptoms - No nasal discharge - No postnasal drip - No nasal passage blockage (stuffiness) - No sore throat - No chest pain or discomfort - No chest tightness or heavy pressure - No palpitations - No dyspnea - No cough - No wheezing - Normal appetite - Appetite not decreased - No nausea - No vomiting - No abdominal pain - No diarrhea - No myalgias - No anosmia - No unpleasantly altered taste - No skin symptoms Patient is a 39 year old female that presents to the respiratory clinic for c/o cough, headache, and bodyaches since . Patient states her friend started with symptoms saturday but she was last around her 72 hour prior. Social History Description Last Updated No travel 09/22/2020 Last Documented On 10:43AM ; [facility] Smoking Status Unknown Procedures and Surgical History Includes: Procedures from this encounter Procedures Code Diagnosis Performing Provider Service Location Service Date the options include antihistamines as needed per product instructions Last Documented On 10:42AM ; [facility] Pt to use OTC fever/pain product as need ed per product instruction.~ Last Documented On 10:42AM ; [facility] Pt to use OTC expectorant product as nee ded per product instruction.~ Last Documented On 1 10:42AM ; [facility] Pt to use OTC cough product as needed pe r product instruction.~ Last Documented On 10:42AM ; [facility] plan of care reviewed and agreed to Last Documented On 1 10:42AM ; [facility] Medical History Includes: Medical History addressed during this encounter Description Last Updated No exposure to a contagious disease 09/11 Last Documented On 1 10:43AM ; [facility] Family History Includes: Family History addressed during this encounter No Family History Recorded Review of Systems Includes: Review of Systems from this encounter Systemic: No systemic symptoms and no fever. Head: Headache. Neck: No neck symptoms. Eyes: No eye symptoms. Otolaryngeal: No otolaryngeal symptoms. Cardiovascular: No cardiovascular symptoms. Pulmonary: Cough. Gastrointestinal: No gastrointestinal symptoms. Genitourinary: No genitourinary symptoms. Endocrine: No endocrine symptoms. Hematologic: No hematologic symptoms. Musculoskeletal: Musculoskeletal symptoms. Neurological: No neurological symptoms. Psychological: No psychological symptoms. Skin: No skin symptoms. Mental Status Includes: Mental Status from this encounter No Mental Status Recorded Functional Status Includes: Functional Status from this encounter No Functional Status Recorded Physical Exam Includes: Physical Exam from this encounter Encounters Encounter Provider Location Date Check-In Time Check-Out Time Diagnosis COVID SICK VISIT- NEW PATIENT SUZANNE Baker RY TILE PRESSER-C [facility] 09/23/19 21 8:54AM 9:37AM Contact with and (Suspected) Exposure To Covid-19 Insurance Includes: Active Insurance Policies No Insurance Coverage Recorded Guarantor Relationship Effective Dates Guarantor Ph one MALA CHEEK [id number] Clinical Notes Includes: Clinical Notes from this encounter No Clinical Notes Recorded
--- OUTSIDE RECORDS SUMMARY | 2024-03-05 20:01 | XMS_ITS ---
Care Plan - [facility] Created on: March 05, 2024 MALA CHEEK : 1980 Sex: Female Author Organization [facility] Address [address] [place] [address] Phone Care Team Providers Care Machine Technician Name Role Phone Unavailable Unavailable Unavailable
--- OUTSIDE RECORDS SUMMARY | 2024-03-05 20:01 | XMS_ITS | Referral Summary ---
Author Organization [facility] Address [address] [place] [address] Care Team Providers Care Instructional Support Specialist Name Role Phone Giuseppe Loera MD Primary Care Provider + Encounters Date Type Department Care Team Description 01/16/2024 11:15 AM SENIOR SOFTWARE ANALYST Office Visit [facility] Cardiology at [address] [place] [address] Nolberto Akers MD Pulmonary hypertension, unspecified (HCC) (Primary Dx); Shortness of breath; Central sleep apnea 12/30/2023 10:18 AM SENIOR SOFTWARE ANALYST - 12/30/2023 11:48 AM SENIOR SOFTWARE ANALYST Surgery [facility] Cardiac Catheterization Lab [address] [place] [id number] Ramin Maxwell MD RIGHT LEFT HEART CATHETERIZATION WITH CORONARY ANGIOGRAPHY GRAFT AND WITH OR WITHOUT LEFT VENTRICULOGRAPHY [id number] 12/30/2023 7:46 AM SENIOR SOFTWARE ANALYST - 12/30/2023 2:21 PM SENIOR SOFTWARE ANALYST Hospital Encounter [facility] Cardiac Catheterization [facility] [address] [place] [phone] Ramin Maxwell MD Pulmonary hypertension, unspecified (HCC); Shortness of breath Discharge Disposition: Discharge to home or self care from Last 3 Months Allergies No known active allergies Medications venlafaxine [...] full glass of water.. 60 tablet 1 03/06/19 25 Active Additional Information Patient not taking.Reported on 01/16/2024 Active Problems Problem Noted Date Diagnosed Date Central sleep apnea 12/03/2023 Shortness of breath 12/03/2023 Pulmonary hypertension, unspecified 12/03/2023 Other ill-defined heart diseases 12/03/2023 Tobacco abuse 12/03/2023 Obesity (BMI 30.0-34.9) 12/03/2023 Family history of premature CAD 12/03/2023 Immunizations Name Administration Dates Next Due Tdap 10/22/2022 Social History Tobacco Use Types Packs/Day Years [...] on file Legal Sex Female 7:58 AM SENIOR SOFTWARE ANALYST Gender Identity Not on file Sexual Orientation Not on file Last Filed Vital Signs Vital Sign Reading Time Taken Comments Blood Pressure 124/86 01/16/2024 11:15 AM SENIOR SOFTWARE ANALYST Pulse 87 01/16/2024 11:15 AM SENIOR SOFTWARE ANALYST Temperature 37 ??C (98.6 ??F) 12/30/2023 8:07 AM SENIOR SOFTWARE ANALYST Respiratory Rate 18 12/30/2023 8:07 AM SENIOR SOFTWARE ANALYST Oxygen Saturation 96% 01/16/2024 11:15 AM SENIOR SOFTWARE ANALYST Inhaled Oxygen Concentration - - Weight 93 kg (205 lb) 01/16/2024 11:15 AM SENIOR SOFTWARE ANALYST Height 168.9 cm (5' 6.5 ) 01/16/2024 11:15 AM CS T Body Mass Index 32.59 01/16/2024 11:15 AM SENIOR SOFTWARE ANALYST Plan of Treatment Not on file Medical Devices Implanted Type Area Kosher Inspector Device Identifier Shelf Expiration Date Model / Serial / Lot 3.0 X 22 Mm Headed Cannulated Screw Implanted:Qty: 1 on 01/29/2019 by Winston Ramos DPM at [facility] Screw Left: [employer] [id number] / / [id number] [employer] Device 10ml 5fr Closure Mynx Control 2 Mode Balloon Catheter [id number] - [id number] Implanted:Qty: 1 on 12/30/2023 by Ramin Maxwell MD at [facility] [employer] 10/29/2025 [id number] / / [id number] Procedures Procedure Name Priority Date/Time Associated Diagnosis Comments VASCULAR ACCESS US GUIDANCE Routine 12/30/2023 11:17 AM SENIOR SOFTWARE ANALYST Pulmonary hypertension, unspecified (HCC) Shortness of breath RIGHT LEFT HEART CATHETERIZATION CORONARY GRAFT WITH WITHOUT LEFT VENTRICULOGRAPHY ANGIOGRAM Routine 12/30/2023 11:17 AM SENIOR SOFTWARE ANALYST Pulmonary hypertension, unspecified (HCC) Shortness of breath MODERATE SEDATION FIRST 15MIN 5+ YEAR 69273 12/30/2023 10:25 AM SENIOR SOFTWARE ANALYST Pulmonary hypertension, unspecified (HCC) Shortness of breath POCT HCG, URINE Routine 12/30/2023 8:03 AM SENIOR SOFTWARE ANALYST COMPREHENSIVE METABOLIC PANEL Routine 12/26/2023 7:15 AM SENIOR SOFTWARE ANALYST Pre-procedure lab exam CBC WITH AUTO DIFFERENTIAL Routine 12/26/2023 7:15 AM SENIOR SOFTWARE ANALYST Pre-procedure lab exam from Last 3 Months Results * RIGHT LEFT HEART CATHETERIZATION CORONARY GRAFT WITH WITHOUT LEFT VENTRICULOGRAPHY ANGIOGRAM, VASCULAR ACCESS US GUIDANCE (12/30/2023 11:17 AM SENIOR SOFTWARE ANALYST) Anatomical Region Laterality Modality X-Ray Angiograph y Addenda Addendum by Ramin Maxwell MD on 12/30/2023 12:16 PM SENIOR SOFTWARE ANALYST RIGHT AND LEFT HEART CAHETERIZATION ??REPORT DATE [...] groin hematoma, retroperitoneal bleed, vessel perforation; periprocedural [place], cardiac arrhythmias, stroke, contrast induced nephropathy, and [...] Mynx vascular closure device Moderate sedation-CPT code 66016 MODERATE SEDATION: Midazolam 2 mg , Fentanyl 50 mcg, start time ?1049 stop time ?? 1117, total time ?? 28 minutes (CPT 24337) TRAINED OBSERVER: Leia Weaver ??RN was trained observer for moderate sedation. ACCESS SITE: ??Right common femoral artery and vein PROCEDURE: ??After obtaining informed consent, patient was brought to the laborer electroplating and prepped and draped in the usual sterile manner. ??Time-out and immediate reassessment of the patient was performed. ??After local anesthesia with lidocaine, right common femoral artery access was taken with micropuncture needle under ultrasound guidance followed by insertion of a 5 Azerbaijani sheath over a 0.035 inch wire. ??Right common femoral venous access was taken under ultrasound guidance followed by insertion of a 7 Azerbaijani sheath. Right heart catheterization was was performed using Mcgregor-Debra catheter under fluoroscopic guidance. ??Pressures were measured in the right atrium, right ventricle, pulmonary artery, pulmonary capillary. ??Cardiac output was measured using thermodilution and Wade technique. ??The catheter was taken out and attention was shifted to the left heart catheterization. Selective left and right coronary angiography was performed using 5 F JL4 and 5F JR4 catheters respectively. ??Orthogonal views were taken. ??Five Azerbaijani JR4 catheter catheter was advanced into the [...] was used to complete this document, therefore, roof fitter variances may occur. Ramin Maxwell MD, [facility] 12/30/23 us Ramin Maxwell MD CV CARDIAC CATH PROCEDURES Edite d Result - Final * POCT hCG, urine (12/30/2023 8:03 AM SENIOR SOFTWARE ANALYST) Pathologist [facility] HCG, ur, POC Negative Negative Lot Number [id number] QC Backgroud Clear Acceptable QC Control Line Acceptable Urine 12/30/2023 8:03 AM SENIOR SOFTWARE ANALYST Ramin Maxwell MD POINT OF CARE TEST ORDERABLES Fi nal Result * CBC with auto differential (12/26/2023 7:15 AM SENIOR SOFTWARE ANALYST) Pathologist [facility] WBC 4.9 3.4 - 10.8 x10E3/uL [facility] [...] [facility] - 01 Blood 12/26/2023 7:15 AM SENIOR SOFTWARE ANALYST 12/26/2023 Narrative [facility] - 12/27/2023 7:13 AM SENIOR SOFTWARE ANALYST Performed at: ??01 - [facility] ??[id number] [employer] Sales Representative: Jon Ruiz PhD, Phone: ??[phone] us Nolberto Akers MD LAB BLOOD ORDERABLES Kayleigh myers Result [facility] - 01 * (ABNORMAL) Comprehensive metabolic panel (12/26/2023 7:15 AM SENIOR SOFTWARE ANALYST) Glucose 88 70 - 99 mg/dL [facility] [...] [facility] - 01 Blood 12/26/2023 7:15 AM SENIOR SOFTWARE ANALYST 12/26/2023 Narrative [facility] - 12/27/2023 7:13 AM SENIOR SOFTWARE ANALYST Performed at: ??01 - [facility] [address] ??[id number] [employer] Sales Representative: Jon Ruiz PhD, Phone: ??[phone] us Nolberto Akers MD LAB BLOOD ORDERABLES Kayleigh myers Result [facility] - 01 from Last 3 Months Insurance [employer] OPEN ACCESS AETNA SIG [id number] Advance Directives For more information, please contact: [phone] * Full Code (Latest Code Status on File) Date Activated Date Inactivated Comments 01/29/2019 10:16 AM 01/29/2019 6:39 PM * Full Code Date Activated Date Inactivated Comments 04/12/2017 9:24 AM 04/12/2017 12:47 PM Care Teams Instructional Support Specialist Relationship Specialty Start Date End Date Giuseppe Loera MD [address] [place] [address] [place], [place] [id number] PCP - General 01/28/17
--- OUTSIDE RECORDS SUMMARY | 2024-03-05 20:01 | XMS_ITS ---
Care Plan - [facility] Created on: March 05, 2024 MALA CHEEK : 1980 Sex: Female Author Organization [facility] Address [address] [place] [address] Phone Care Team Providers Care Quartz Mounter Name Role Phone Unavailable Unavailable Unavailable
--- OUTSIDE RECORDS SUMMARY | 2024-03-05 20:01 | XMS_ITS | Clinical Summary ---
Author Organization [facility] Address [address] [place] [address] Phone Care Team Providers Care Camera Repairer Name Role Phone Unavailable Unavailable Unavailable Reason for Visit and Chief Complaint The Chief Complaint is: Pt. c/o fatigue, dry cough, headache, muscle aches X 4 days. Pt states her friend is Covid + X6 days ago.Pt. is not Covid vaxxed Plan of Treatment - The options include close observation - Last Documented On 09/22/2020 10:43AM ; [facility] - Continue current medication - Last Documented On 09/22/2020 10:43AM ; [facility] Rapid COVID testing performed was negative. Patient advised that they may return to school/work when fever free without fever reducing medication for 24 hours and symptoms have improved. Call clinic for worsening symptoms or any concerns - Last Documented On 09/22/2020 10:43AM ; [facility] Assessments Includes: Assessments from this encounter Findings - Contact with and (Suspected) exposure to COVID-19 [Contact with and (suspected) exposure to COVID-19] - Last Documented On 09/22/2020 10:43AM ; [facility] Medical Equipment - Implanted Devices Includes: Current Devices No Medical Equipment Recorded Medications Administered Includes: Administered Medications from this encounter No Administered Medications Recorded Vital Signs Includes: Vital Signs from this encounter Vital Name 09/22/2020 09:16A Pulse Rate-Sitting (bpm) 82 Temp-Oral (F) 97.9 Oxygen Saturation (%) 98 Last Documented: On 09/22/2020 9:17AM ; [facility] Results Includes: Results discussed during this encounter Rapid COVID Test [facility] Ordered by SUZANNE MICHELE on 0 09/22/2020 Collected: Reported: 09/22/2020 09:26 Last Documented On 9:27AM ; [facility] Reviewed on 09/22/2020; All test results are final unless otherwise noted. Rapid COVId Negative N (Normal) Last Documented On 9:26AM ; [facility] Int. QC Acceptable yes N (Normal) Last Documented On 9:26AM ; [facility] Lot # and Exp. Date [id number] N (Normal) Last Documented On 9:26AM ; [facility] History of Present Illness Includes: History of [...] travel 09/22/2020 Last Documented On 10:43AM ; [facility] Smoking Status Unknown Procedures and Surgical History Includes: Procedures from this encounter Procedures Code Diagnosis Performing Provider Service Location Service Date the options include antihistamines as needed per product instructions Last Documented On 10:42AM ; [facility] Pt to use OTC fever/pain product as need ed per product instruction.~ Last Documented On 10:42AM ; [facility] Pt to use OTC expectorant product as nee ded per product instruction.~ Last Documented On 1 10:42AM ; [facility] Pt to use OTC cough product as needed pe r product instruction.~ Last Documented On 10:42AM ; [facility] plan of care reviewed and agreed to Last Documented On 1 10:42AM ; [facility] Medical History Includes: Medical History addressed during this encounter Description Last Updated No exposure to a contagious disease 09/11 Last Documented On 1 10:43AM ; [facility] Family History Includes: Family History addressed during [...] SICK VISIT- NEW PATIENT SUZANNE Baker RY JAVA PROGRAMMER ANALYST-C [facility] 09/23/19 21 8:54AM 9:37AM Contact with and (Suspected) Exposure To Covid-19 Insurance Includes: Active Insurance Policies No Insurance Coverage Recorded Guarantor Relationship Effective Dates Guarantor Ph one MALA CHEEK [id number] Clinical Notes Includes: Clinical Notes from this encounter No Clinical Notes Recorded
== END 2024-03-03 17:20 | disposition home or self-care (01) ==
PROVIDERS: Emergency Provider Registered Nurse; PCP Family Medicine
DX: H65.93 Unspecified nonsuppurative otitis media, bilateral (principal); H60.393 Other infective otitis externa, bilateral; F17.210 Nicotine dependence, cigarettes, uncomplicated; G47.33 Obstructive sleep apnea (adult) (pediatric); E78.2 Mixed hyperlipidemia; E03.9 Hypothyroidism, unspecified; I27.20 Pulmonary hypertension, unspecified; E66.9 Obesity, unspecified; Z68.31 Body mass index [BMI] 31.0-31.9, adult
CPT/HCPCS: 99213; G0463